=== PATIENT | female | born 1965 ===

== ENCOUNTER 2018-05-03 14:45 | Emergency (ER) | payer OTHER ==
[2018-05-03] MEDS ORDERED: Lactated Ringer's 1,000 ML IV STA (15:06)
[2018-05-03 15:35] VITALS: RESP 16
--- NOTE | 2018-05-03 15:41 | C.PDOC ---
History Of Present Illness 52 y/o female presents to the ED complaining of 2 days of bloody diarrhea. States that she saw her PMD 3 days ago for cough and cold, was diagnosed with viral illness, and started on Tamiflu. Yesterday she began having diarrhea with some crampy abdominal pain. Patient then noticed multiple episodes of bloody stool, prompting ED visit today. Patient notes her cough, rhinorrhea, and bodyaches are improving. She denies associated vomiting, fevers, chills, headache, SOB, chest pain, or dizziness. + Recent travel from [place], returned on 04/19/18. Denies any known PMHx. Time Seen by Provider: 05/03/18 14:57 Chief Complaint (Nursing): Abdominal Pain History Per: Patient History/Exam Limitations: no limitations Onset/Duration Of Symptoms: Days (x2) Current Symptoms Are (Timing): Still Present Quality Of Discomfort: Cramping Past Medical History Reviewed: Historical Data, Nursing Documentation, Vital Signs Vital Signs: Last Vital Signs Temp 98.7 F 05/03/18 14:51 Pulse 93 H 05/03/18 14:51 Resp 16 05/03/18 14:51 BP 113/81 05/03/18 14:51 Pulse Ox 97 05/03/18 14:51 - Medical History PMH: No Chronic Diseases Family History: States: No Known Family Hx - Social History Hx Tobacco Use: No Hx Alcohol Use: No Hx Substance Use: No - Immunization History Hx Tetanus Toxoid Vaccination: No Hx Influenza Vaccination: No Hx Pneumococcal Vaccination: No Review Of Systems Constitutional: Negative for: Fever, Chills, Weight loss Eyes: Negative for: Redness, Other (scleral icterus) ENT: Positive for: Nose Congestion. Negative for: Ear Pain, Throat Swelling Cardiovascular: Negative for: Chest Pain, Palpitations Respiratory: Positive for: Cough (now resolving). Negative for: Shortness of Breath, Hemoptysis, SOB with Excertion Gastrointestinal: Positive for: Abdominal Pain (cramping), Diarrhea, Hematochezia. Negative for: Nausea, Vomiting Genitourinary: Negative for: Dysuria, Hematuria Musculoskeletal: Negative for: Back Pain Skin: Negative for: Rash Neurological: Negative for: Weakness, Numbness, Headache, Dizziness Physical Exam - Physical Exam Appears: Well, Non-toxic, No Acute Distress, Other (appears well hydrated) Skin: Normal Color, Warm, No Rash Head: Atraumatic, Normacephalic Eye(s): bilateral: Normal Inspection (no scleral icterus), PERRL, EOMI Oral Mucosa: Moist Neck: Normal ROM, Supple Chest: Symmetrical Cardiovascular: Rhythm Regular, No Murmur Respiratory: No Rales, No Rhonchi, No Wheezing, Other (Lungs clear bilaterally, normal inspiratory effort) Gastrointestinal/Abdominal: Bowel Sounds (good), Soft, No Tenderness, No Distention Rectal: Deferred Back: Normal Inspection, Other (Ambulating with steady upright gait) Extremity: Bilateral: Atraumatic, Normal ROM Pulses: Left Radial: Normal, Right Radial: Normal Neurological/Psych: Oriented x3, Normal Cranial Nerves (grossly intact) Gait: Steady ED Course And Treatment - Laboratory Results Result Diagrams: 05/03/18 16:24 05/03/18 16:24 O2 Sat by Pulse Oximetry: 97 (RA) Pulse Ox Interpretation: Normal Medical Decision Making Medical Decision Making: Impression: Abdominal cramping, bloody diarrhea Plan: --Blood work --Urinalysis --Stool culture --LR IV fluids --Reassess after fluids 16:[address] Ocampo. Disposition - Disposition Disposition: HOME/ ROUTINE Disposition Time: 16:40 Condition: STABLE Additional Instructions: EMILY SORIA, thank you for letting us take care of you today. Your provider was Alexandra Ocampo MD and you were treated for DIARRHEA. The emergency medical care you received today was directed at your acute symptoms. If you were prescribed any medication, please fill it and take as directed. It may take several days for your symptoms to resolve. Return to the Emergency Department if your symptoms worsen, do not improve, or if you have any other problems. Please contact your doctor or call one of the physicians/clinics you have been referred to that are listed on the Patient Visit Information form that is included in your discharge packet. Bring any paperwork you were given at discharge with you along with any medications you are taking to your follow up visit. Our treatment cannot replace ongoing medical care by a primary care provi deshaun outside of the emergency department. Thank you for allowing the [facility] team to be part of your care today. If you had an X-Ray or CT scan: A Radiologist will review the ED reading if any change in treatment is needed we will contact you. If you had a blood, urine, or wound culture: It will take several days for the results, if any change in treatment is needed we will contact you. If you had an STI test: It will take 48 hours for the results. Please call after 1 week if you have not heard back. Instructions: Bloody Stools, Adult (DC) Forms: [employer] ([place]) - Clinical Impression Clinical Impression: Gastroenteritis - PA / EVENT MARKETING SPECIALIST / Resident Statement MD/DO has reviewed & agrees with the documentation as recorded. - Scribe Statement The provider has reviewed the documentation as recorded by the Scribe Shaneka Grande All medical record entries made by the Yulisaibkam were at my direction and personally dictated by me. I have reviewed the chart and agree that the record accurately reflects my personal performance of the history, physical exam, medical decision making, and the department course for this patient. I have also personally directed, reviewed, and agree with the discharge instructions and disposition. Physician Patient Turnover Patient Signed Over To: Alexandra Ocampo (pending labs and dispo)
[2018-05-03] MEDS ORDERED: Lactated Ringer's 1,000 ML ONE (16:15)
[2018-05-03 16:33] LABS: BASO # 0.1 K/uL (0.0-0.2); BASO % 1.1 % (0.0-2.0); EOS % 0.2 % (0.0-4.0); HEMOGLOBIN 15.5 g/dL (11.0-16.0); LYMPH % 20.9 % (20.0-40.0); MEAN CELL VOLUME 92.2 fL (81.0-99.0); MEAN CORPUSCULAR HEMOGLOBIN 32.6 pg (27.0-31.0); MEAN CORPUSCULAR HGB CONC 35.3 g/dL (33.0-37.0); MEAN PLATELET VOLUME 7.1 fL (7.2-11.7); MONO # 0.7 K/uL (0.0-0.8); MONO % 6.9 % (0.0-10.0); NEUT # 6.8 K/uL (1.8-7.0); NEUT % 70.9 % (50.0-75.0); RBC 4.77 Mil/uL (3.80-5.20); RED CELL DISTRIBUTION WIDTH 12.7 % (11.5-14.5); WHITE BLOOD COUNT 9.6 K/uL (4.8-10.8)
[2018-05-03 16:47] LABS: ALB/GLOB RATIO 1.1 (1.0-2.1); ALBUMIN 4.5 g/dL (3.5-5.0); ALT/SGPT 22 U/L (9-52); AST/SGOT 32 U/L (14-36); BLOOD UREA NITROGEN 8 mg/dL (7-17); CALCIUM 9.3 mg/dl (8.6-10.4); GFR NON-AFRICAN AMERICAN > 60; LIPASE 48 U/L (23-300)
[2018-05-03 17:48] VITALS: BP 107/72; PULSE 74; TEMP 97.6
[2018-05-05 20:55] VITALS: O2SAT 97
== END 2018-05-03 17:47 | disposition home or self-care (01) ==
LOC: C.ER 14:45
DX: K52.9 Noninfective gastroenteritis and colitis, unspecified (principal)
CPT/HCPCS: 80053; 83690; 85025; 87045; 99284; J7120